=== PATIENT | female | born 1995 | race Caucasian/White ===

== ENCOUNTER 2017-01-25 09:45 | Emergency (ER) | payer BC, OTHER ==
[2017-01-25 09:57] VITALS: BP 109/70
--- NOTE | 2017-01-25 10:36 | UC ---
Complaint Female HPI - HPI Summary HPI Summary: Pt has hx of several UTIs in the past, at least once had episode of resistant pathogen that needed multiple courses of abx. Has been having urinary pain, freq , dribbling, bladder cramping, and urgency starting about 3 days ago. Feels just like UTIs in the past. Denies fever, vomiting, or back pain. - History Of Current Complaint Chief Complaint: [facility] Stated Complaint: URINARY COMPLAINT Time Seen by Provider: 01/25/17 10:15 Hx Obtained From: Patient Hx Last Menstrual Period: 01/24/17 Onset/Duration: Gradual Onset, Lasting Days Timing: Constant Severity Initially: Mild Severity Currently: Moderate Character: Burning, Cramping Aggravating Factor(s): Urination Associated Signs And Symptoms: Negative: Fever, Back Pain, Nausea, Vomiting(# Of Episodes =) - Allergies/Home Medications Allergies/Adverse Reactions: Allergies Allergy/AdvReac Type Severity Reaction Status Date / Time Amoxicillin [From Augmentin] Allergy GI Upset Verified 01/25/17 09:51 Clavulanic Acid Allergy GI Upset Verified 01/25/17 09:51 [From Augmentin] Latex Allergy Hives Verified 01/25/17 09:51 Home Medications: Home Medications Cranberry-Vitamin C [Azo Cranbery Urinary Trac 250-60 mg] 1 cap PO DAILY PRN 02/02 [History Confirmed 01/25/17] Etonogestrel [Nexplanon] 68 mg IMPLANT SEE INSTRUCTIONS 01/25/17 [History Confirmed 01/25/17] Methenamine-Sodium Salicylate [Azo Urinary Tract Defense 162-162.5 mg] 1 tab PO DAILY PRN 01/25/17 [History Confirmed 01/25/17] PMH/Surg Hx/FS Hx/Imm Hx Previously Healthy: Yes - Surgical History Surgical History: Yes Surgery Procedure, Year, and Place: [id number], T&A - Family History Known Family History: Negative: Blood Disorder - Social History Occupation: Employed Full-time Alcohol Use: None Substance Use Type: None Smoking Status (MU): Never Smoked Tobacco Review of Systems Constitutional: Negative Skin: Negative Eyes: Negative ENT: Negative Respiratory: Negative Cardiovascular: Negative Gastrointestinal: Negative Genitourinary: Dysuria, Frequency, Urgency Motor: Negative Neurovascular: Negative Musculoskeletal: Negative Neurological: Negative Psychological: Negative Is Patient Immunocompromised?: No All Other Systems Reviewed And Are Negative: Yes Physical Exam Triage Information Reviewed: Yes Appearance: Well-Appearing, No Pain Distress, Well-Nourished Vital Signs: Initial Vital Signs Temp 98.2 F 01/25/17 09:53 Pulse 71 01/25/17 09:53 Resp 16 01/25/17 09:53 BP 109/70 01/25/17 09:53 Pulse Ox 99 01/25/17 09:53 Vital Signs Reviewed: Yes Eye Exam: Normal, Other - PERRL Eyes: Positive: Conjunctiva Clear ENT Exam: Normal ENT: Positive: Normal ENT inspection, Hearing grossly normal, Pharynx normal, TMs normal Dental Exam: Normal Neck exam: Normal Respiratory Exam: Normal Respiratory: Positive: Chest non-tender, Lungs clear, Normal breath sounds, No respiratory distress, No accessory muscle use Cardiovascular Exam: Normal Cardiovascular: Positive: RRR, Pulses Normal Abdominal Exam: Normal Abdomen Description: Positive: Nontender, Soft. Negative: CVA Tenderness (R), CVA Tenderness (L) Musculoskeletal Exam: Normal Neurological Exam: Normal Psychological Exam: Normal Skin Exam: Normal Complaint Female Dx - Differential Dx/Diagnosis Provider Diagnoses: UTI Discharge - Discharge Plan Condition: Stable Disposition: HOME Prescriptions: Cephalexin CAP* [Keflex 500 CAP*] 500 mg PO SEE INSTRUCTIONS #11 cap Patient Education Materials: Urinary Tract Infection in Women (ED) Referrals: Jim Holguin MD [Primary Care Provider] - Additional Instructions: Call or return if symptoms persist or worsen.
== END 2017-01-25 10:46 | disposition home or self-care (01) ==
LOC: UCCORT 09:45
DX: N39.0 Urinary tract infection, site not specified (principal); Z87.440 Personal history of urinary (tract) infections; Z88.1 Allergy status to other antibiotic agents; Z91.040 Latex allergy status
CPT/HCPCS: 99202; G0463